=== PATIENT | female | born 1990 | race Caucasian/White ===

== ENCOUNTER → 2016-12-11 | Outpatient (CLI) | payer OTHER ==
[~2016-12-11] MED LIST: COLACE 100MG C100 MG PO
== END ==
LOC: GENOP 20:00
DX: O46.93 Antepartum hemorrhage, unspecified, third trimester (principal); O26.893 Other specified pregnancy related conditions, third trimester; R10.9 Unspecified abdominal pain; M54.9 Dorsalgia, unspecified; Z3A.31 31 weeks gestation of pregnancy; Z88.0 Allergy status to penicillin; Z88.5 Allergy status to narcotic agent; Z88.8 Allergy status to other drugs, medicaments and biological substances
CPT/HCPCS: G0463; J7120

== ENCOUNTER 2017-02-10 12:10 | Inpatient (IN) | payer OTHER ==
[~2017-02-10] VITALS: Ht 154.9 cm; Wt 74.4 kg
[2017-02-10 15:29] LABS: HEMOGLOBIN 11.2 gm/dl (12.3-15.3); RED BLOOD COUNT 4.4 M/UL (4.00-5.10); WHITE BLOOD COUNT 7.7 K/UL (4.5-11.0)
[2017-02-11 02:34] LABS: HEMOGLOBIN 9.4 gm/dl (12.3-15.3)
[2017-02-12] MEDS ORDERED: COLACE 100MG C100 MG PO (10:46)
== END 2017-02-12 11:00 | disposition home or self-care (01) | DRG 774 ==
LOC: GENOP 12:10 → OB 12:38
PROVIDERS: Obstetrics & Gynecology; ADMIT Obstetrics & Gynecology
PROC: 10E0XZZ Delivery of Products of Conception, External Approach (ICD-10-PCS; principal; 2017-02-10)
PROC: 10907ZC Drainage of Amniotic Fluid, Therapeutic from Products of Conception, Via Natural or Artificial Opening (ICD-10-PCS; 2017-02-10)
DX: O99.324 Drug use complicating childbirth (principal); O98.42 Viral hepatitis complicating childbirth; F11.20 Opioid dependence, uncomplicated; B19.20 Unspecified viral hepatitis C without hepatic coma; Z3A.39 39 weeks gestation of pregnancy; Z37.0 Single live birth; O69.81X0 Labor and delivery complicated by cord around neck, without compression, not applicable or unspecified; Z88.6 Allergy status to analgesic agent; Z88.0 Allergy status to penicillin
CPT/HCPCS: 36415; 80307; 81001; 82800; 85014; 85018; 85025; 85461; 86850; 86900; 86901; J2590; J2790; J2795; J3010; J7120

== ENCOUNTER 2020-10-09 17:32 | Emergency (ER) | payer OTHER ==
[~2020-10-09 17:32] MED LIST changes: +BACTRIM DS TAB1 EACH PO; +CLINDAMYCIN HC300 MG PO; +IBUPROFEN600 MG PO; +NORFLEX 100 MG100 MG PO
== END 2020-10-09 17:59 | disposition left against medical advice (07) ==
LOC: ER1 17:32
DX: R20.0 Anesthesia of skin (principal); Z53.21 Procedure and treatment not carried out due to patient leaving prior to being seen by health care provider

== ENCOUNTER 2022-04-09 18:24 | Emergency (ER) | payer OTHER ==
[2022-04-09 19:12] LABS: HEMOGLOBIN 14.2 gm/dl (12.3-15.3); RED BLOOD COUNT 4.94 M/UL (4.00-5.10); WHITE BLOOD COUNT 7.1 K/UL (4.5-11.0)
[2022-04-09 19:48] LABS: BUN/CREATININE RATIO 18 (0-10)
[2022-04-09] MEDS ORDERED: PANTOPRAZOLE SO20 MG PO (23:45)
== END 2022-04-10 00:17 | disposition home or self-care (01) ==
LOC: ER1 18:24
DX: R07.9 Chest pain, unspecified (principal); R13.10 Dysphagia, unspecified; Z88.0 Allergy status to penicillin; Z88.5 Allergy status to narcotic agent
CPT/HCPCS: 71045; 80053; 81001; 82550; 82553; 84484; 84703; 85025; 85379; 93005; 99285

== ENCOUNTER 2022-06-20 09:06 | Emergency (ER) | payer OTHER ==
[~2022-06-20 09:06] MED LIST changes: +PANTOPRAZOLE SO20 MG PO
[2022-06-20 09:54] LABS: HEMOGLOBIN 15.7 gm/dl (12.3-15.3); RED BLOOD COUNT 5.34 M/UL (4.00-5.10)
[2022-06-20 10:19] LABS: BUN/CREATININE RATIO 18 (0-10)
== END 2022-06-20 11:03 | disposition home or self-care (01) ==
LOC: ER1 09:06
PROVIDERS: Family Medicine
DX: F41.9 Anxiety disorder, unspecified (principal); R20.2 Paresthesia of skin; Z88.0 Allergy status to penicillin; Z88.8 Allergy status to other drugs, medicaments and biological substances
CPT/HCPCS: 80053; 82550; 82553; 83735; 84439; 84443; 84484; 84703; 85025; 93005; 99284